=== PATIENT | male | born 1985 | race Caucasian/White ===

== ENCOUNTER 2017-06-23 09:20 | Emergency (ER) | payer OTHER ==
[~2017-06-23] VITALS: Ht 180.3 cm; Wt 96.6 kg
[~2017-06-23 09:20] MED LIST: ACYCLOVIR 200200 MG PO; ATIVAN1 MG PO; IBUPROFEN 800800 MG PO; VALIUM10 MG PO
[2017-06-23] MEDS ORDERED: PROZAC20 MG PO (09:32)
[2017-06-23] MEDS ORDERED: WELLBUTRIN SR150 M1 PO (09:32)
[2017-06-23 09:50] LABS: INFLUENZA A ANTIGEN None Detected (None Detect); INFLUENZA B ANTIGEN None Detected (None Detect)
[2017-06-23] MEDS ORDERED: ZOFRAN4 MG PO (09:57)
[2017-06-23] MEDS ORDERED: AZITHROMYCIN 2250 MG PO (09:57)
[2017-06-23] MEDS ORDERED: HYDROCODON-ACE1 EAC7 PO (09:57)
[2017-06-23 10:24] VITALS: BP 167/100
[2017-06-23] MEDS ORDERED: LEVAQUIN 500 M500 MG PO (22:10)
[2017-06-23] MEDS ORDERED: ALBUTEROL2.5 MG/31 INH (22:10)
== END 2017-06-23 10:25 | disposition home or self-care (01) ==
LOC: M.ERS 09:20
PROVIDERS: Emergency Medicine
DX: J02.9 Acute pharyngitis, unspecified (principal); J40 Bronchitis, not specified as acute or chronic; F32.9 Major depressive disorder, single episode, unspecified; F41.0 Panic disorder [episodic paroxysmal anxiety]; Z98.890 Other specified postprocedural states; Z88.5 Allergy status to narcotic agent

== ENCOUNTER 2017-06-23 20:32 | Emergency (ER) | payer OTHER ==
[~2017-06-23] VITALS: Ht 180.3 cm; Wt 96.6 kg
[~2017-06-23 20:32] MED LIST changes: +AZITHROMYCIN 2250 MG PO; +HYDROCODON-ACE1 EAC7 PO; +PROZAC20 MG PO; +WELLBUTRIN SR150 M1 PO; +ZOFRAN4 MG PO
[2017-06-23 21:06] LABS: HEMATOCRIT 41.2 % (42.0-52.0); HEMOGLOBIN 14.3 gm/dL (14.0-18.0)
[2017-06-23 21:18] LABS: INR 1.1; PROTIME 10.7 Seconds (9.20-11.50)
[2017-06-23] MEDS ORDERED: LEVAQUIN 500 M500 MG PO (22:10)
[2017-06-23] MEDS ORDERED: ALBUTEROL2.5 MG/31 INH (22:10)
[2017-06-23 22:19] VITALS: BP 115/55
== END 2017-06-23 22:20 | disposition home or self-care (01) ==
LOC: M.ERS 20:32
PROVIDERS: Nurse Practitioner Family
DX: J18.9 Pneumonia, unspecified organism (principal); F32.9 Major depressive disorder, single episode, unspecified; F41.0 Panic disorder [episodic paroxysmal anxiety]; Z88.6 Allergy status to analgesic agent

== ENCOUNTER 2018-08-27 11:13 | Emergency (ER) | payer OTHER ==
[~2018-08-27] VITALS: Ht 180.3 cm; Wt 99.8 kg
[~2018-08-27 11:13] MED LIST changes: +ALBUTEROL2.5 MG/31 INH; +LEVAQUIN 500 M500 MG PO
[2018-08-27 11:22] VITALS: BP 151/93
[2018-08-27] MEDS ORDERED: BACTRIM DS TAB1 EACH PO (11:34)
[2018-08-27] MEDS ORDERED: KEFLEX500 M1 PO (11:48)
[2018-08-27] MEDS ORDERED: NORCO 5-325 TA1 EACH PO (11:48)
== END 2018-08-27 11:57 | disposition home or self-care (01) ==
LOC: M.ERS 11:13
DX: L02.31 Cutaneous abscess of buttock (principal); F32.9 Major depressive disorder, single episode, unspecified; Z88.1 Allergy status to other antibiotic agents; Z88.5 Allergy status to narcotic agent